=== PATIENT | female | born 1985 | race Caucasian/White ===

== ENCOUNTER → 2016-11-26 | Outpatient (CLI) | payer OTHER ==
[~2016-11-26] MED LIST: ACCL20 PO; ALBUAER2 INH; FERR325T51 PO; FLNIN/ NAE; PRENTAB26 PO; ZYRUNK
== END | disposition home or self-care (01) ==
LOC: C.LAB 18:41
PROVIDERS: ATTEND Family Medicine
DX: J45.901 Unspecified asthma with (acute) exacerbation (principal)

== ENCOUNTER → 2017-05-09 | Outpatient (CLI) | payer BC | END | disposition home or self-care (01) | LOC: C.PAPS 17:54 | PROVIDERS: ATTEND Physician Assistant | DX: Z01.419 Encounter for gynecological examination (general) (routine) without abnormal findings (principal) ==

== ENCOUNTER 2019-04-08 07:39 | Inpatient (IN) ==
[2019-04-08] MEDS ORDERED: OXYTOCIN 30 UNITS/500 ML BAG IV PRN ×3 (07:41→14:36)
[2019-04-08 08:08] LABS: Hemoglobin 10.9 g/dL (12.0-16.0); Mean Corpuscular Volume 81.3 fL (80-100); Mean Platelet Volume 10.2 fL (7.4-10.4); Platelet Count 134 K/uL (130-400); RDW Coefficient of Variation 15.6 % (11.5-14.5); RDW Standard Deviation 45.4 fL (36.4-46.3); Red Blood Count 4.06 M/uL (4.2-5.4); White Blood Count 8.46 K/uL (4.8-10.8)
[2019-04-08] MEDS: LACTATED RINGER'S 1,000 ML IV PRN ×2 (08:11→11:21)
--- NOTE | 2019-04-08 08:18 | History & Physical Report ---
Date of Service April 08, 2019 Assessment & Plan (1) Elective induction of labor planned: fetus category one. Plan induction with pitocin, arom as indicated. Epidural if desired. Anticipate . History of Present Illness Chief Complaint: induction Primary Care Provider: Gayle Unger MD Patient is a 33yowf with iup at 39 6/7 weeks who presents for induction of labor. +fm. no lof/vb. irregular contraction. uncomplicated. labs--A-/ab-/pap nl/ri/rprnr/hepb-/hiv-/gc/ct-/ 16 week gtt nl/ 28 week gtt 146, nl 2 hr/gbs neg Allergies Allergy/AdvReac Type Severity Reaction Status Date / Time cat dander Allergy Severe THROAT Verified 04/08/19 07:58 SWELL, ITCHY, WATERY EYES shellfish derived Allergy Severe THROAT Verified 04/08/19 07:58 SWELL, ITCHY, WATERY EYES No Known Drug Allergies Allergy Unknown Verified 04/08/19 07:58 Dust Allergy Severe THROAT Uncoded 10/20/18 15:10 SWELLS,ITCHY, WATERY EYES Patient History Medical History (Acute) Acute hepatitis A (Resolved) Dysplasia of cervix, low grade (MARIO 1) Ganglion Varicella [place] teeth extracted Surgical History H/O sinus surgery History of tonsillectomy Family History Other Adopted Social History Preferred Language: Ch[place] Feels Safe at Home: Yes Smoking Status: Never smoker OB History g2--02/07, 8#15 oz, g1--09/07, , 7#8oz BOTTOM CAGER History hx of lsil pap and colpo c/w mario 1 Review of Systems All systems reviewed & are unremarkable except as noted in HPI & below Physical Exam Constitutional: WD/WN, vitals as above Gastrointestinal (Abdomen): soft, gravid, nt Psychiatric: A+Ox3, euthymic affect Genitourinary: cx--3/50/-2/soft/mid toco--rare efm--140s with mod varibility, accels to 170s, no decels Results & Data Vital Signs (Past 12 Hours) Vital Signs Temp Pulse Resp BP 04/08/19 07:49 36.6 C 20 04/08/19 07:47 114 H 126/71 Code Status & VTE Plan VTE Prophylaxis Plan VTE Prophylaxis will be ordered: No
[2019-04-08] MEDS ORDERED: ePHEDrine sulfate 50 MG/ML AMP ONE (10:35)
[2019-04-08] MEDS ORDERED: BUPIVACAINE 0.25% 30 ML VIAL ONE (10:35)
[2019-04-08] MEDS ORDERED: fentaNYL citrate 100 MCG/2 ML VIAL ONE (10:36)
[2019-04-08] MEDS ORDERED: fentaNYL 2MCG/ML ROPIV 1.25MG/ML 100 ML BAG EPI ONE (10:37)
[2019-04-08] MEDS ORDERED: fentaNYL 2MCG/ML ROPIV 1.25MG/ML 100 ML BAG EPI PRN (10:50)
[2019-04-08] MEDS ORDERED: ePHEDrine sulfate 50 MG/ML AMP IV PRN (10:50)
[2019-04-08] MEDS ORDERED: NALOXONE HCL 0.4 MG/1 ML VIAL/CARP IV PRN (10:50)
[2019-04-08] MEDS ORDERED: NALOXONE HCL 1 MG in SODIUM CHLORIDE 0.9% 1000ML 1,000 ML IV PRN (10:50)
[2019-04-08] MEDS ORDERED: ONDANSETRON INJ 2 MG/ML 2 ML VIAL IV PRN (10:50)
[2019-04-08] MEDS ORDERED: NALBUPHINE HCL INJ 10 MG/ML AMP IV PRN (10:50)
[2019-04-08] MEDS ORDERED: DiphenhydrAMINE HCL 50 MG/ML VIAL IV PRN (10:50)
--- NOTE | 2019-04-08 11:00 | Obstetrical Progress Note ---
Date of Service April 08, 2019 Assessment & Plan (1) Encounter for supervision of normal in multigravida: (2) Elective induction of labor planned: pitocin infusing, cont per protocol, see how arom augments pattern. fhts categ 1. aware I am assuming care. Subjective saw pt about 1hr ago, was sleeping, pit was infusing. Physical Exam Constitutional: WD/WN, vitals as above Genitourinary: Manual OB Exam: + cervical dilation (2-3), + cervical eff acement 60%, + station -2 and + amniotic fluid (AROM) clear OB Exam Monitor Tracing: + external FHT monitor used (reactive, categ 1), + external uterine monitor used (irreg), + category I and + normal FHT variability Results & Data Vital Signs (Past 12 Hours) Vital Signs Temp Pulse Resp BP 04/08/19 10:00 20 04/08/19 09:59 84 116/67 04/08/19 09:10 85 110/63 04/08/19 07:49 97.9 F 20 04/08/19 07:47 114 H 126/71 PG Care Time/CCT Total # of Minutes Spent Total Time Spent with Patient: Total time spent is greater than 50% in coordination of care (as documented) at patient's floor/unit and/or counseling patient:
--- NOTE | 2019-04-08 11:01 | Anesthesiology Consultation ---
Date of Service April 08, 2019 Assessment & Plan (1) Encounter for pre-operative examination: Chart Review Chart Review: Acceptable Risk for Labor Epidural Consults Requested none ASA ASA2 Proposed Anesthesia Anesthesia Type: Labor Epidural Risk / Benefits Reviewed With: PT / POA / Parent / Guardian, Accepts Plan and Informed Consent Obtained History Height/Weight Height: 5 ft 4 in Weight: 103.374 kg Allergies Allergy/AdvReac Type Severity Reaction Status Date / Time cat dander Allergy Severe THROAT Verified 04/08/19 07:58 SWELL, ITCHY, WATERY EYES shellfish derived Allergy Severe THROAT Verified 04/08/19 07:58 SWELL, ITCHY, WATERY EYES No Known Drug Allergies Allergy Unknown Verified 04/08/19 07:58 Dust Allergy Severe THROAT Uncoded 10/20/18 15:10 SWELLS,ITCHY, WATERY EYES Medications Home Medications Medication Instructions Recorded Confirmed Last Taken albuterol sulfate [Ventolin HFA] 2 puff INHALATION Q4 PRN 04/08/19 04/08/19 04/08/19 06:30 cetirizine [Zyrtec] 10 mg PO DAILY 04/08/19 04/08/19 04/06/19 20:00 fluticasone propionate [Flonase 1 spray INTRANASAL DAILY PRN 04/08/19 04/08/19 Unknown Allergy Relief] vit no.[id number] 1 tab PO HS 04/08/19 04/08/19 04/07/19 20:00 [ Vitamin] Active Medications Generic Name Dose Route Start Last Admin Trade Name Freq PRN Reason Stop Dose Admin Lactated Ringer's 1,000 mls @ 125 mls/hr 04/08/19 07:41 04/08/19 10:41 Lr IV 04/10/19 07:40 999 mls/hr .Q8H PRN Infusion L&D Protocol Protocol Oxytocin 30 units in 500 mls @ 6 mls/hr 04/08/19 07:41 04/08/19 09:41 Pitocin IV 04/10/19 07:40 0.36 units/hr .Q24H PRN 6 mls/hr Labor Induction/Augmentation Titration Protocol 0.36 UNITS/HR Past Medical History Medical History (Acute) Acute hepatitis A (Resolved) Dysplasia of cervix, low grade (SUHAS 1) Ganglion Varicella [place] teeth extracted Exercise / Class Metabolic Activity II 4-5 Yardwork/Stairs/Walk up hill Past Family History Family History Other Adopted Past Surgical History Surgical History H/O sinus surgery History of tonsillectomy Past Anesthesia History No Hx of Anesthesia Complications and No Family Hx of Anesthesia Complications History of PONV No Hx of PONV and No Hx of Motion Sickness Social History Smoking Status: Never smoker Hx Alcohol Use: No Hx Substance Use: No Physical Exam Vital Signs Last Vital Signs Temp 97.9 F 04/08/19 07:49 Pulse 84 04/08/19 09:59 Resp 20 04/08/19 10:00 BP 116/67 04/08/19 09:59 ENMT Mouth: no dentition abnormality Thyromental Distance: > or= 3.5 Finger Breadths Mallampati Class: II Neck normal visual inspection Respiratory normal respiratory effort Auscultation: lungs clear to auscultation bilaterally Cardiovascular Rate/Rhythm: regular rate and regular rhythm Testing Laboratory Results 04/08/19 07:54
--- NOTE | 2019-04-08 14:34 | Delivery Summary ---
Vaginal Delivery Summary Date of Service April 08, 2019 The patient dilated to complete and pushed to deliver a viable female Apgars 9 and 10 via from direct OP position over small vaginal laceration. Mouth and nose bulb suctioned at perineum. Shoulders and body delivered with ease. Infant was vigorous and crying at . Cord clamped at 30 seconds of life and infant to maternal abdomen where the cord was then doubly clamped and cut. Placenta delivered spontaneously and intact, three-vessel cord. Hemostasis achieved with dilute pitocin and uterine massage and drainage of the bladder for approximately 50 cc under sterile conditions. Small vaginal laceration reapproximated with 3-0 vicryl interrupted suture. Cervix and sulci intact. EBL 400 cc. Mother and baby stable recovery.
[2019-04-08] MEDS ORDERED: BENZOCAINE 20% AER SPR 82.5 GM CAN EXT PRN (14:36)
[2019-04-08] MEDS ORDERED: ACETAMINOPHEN 325 MG TAB PO PRN (14:36)
[2019-04-08] MEDS ORDERED: SUPERCREAM 0.870% 15 GM JAR EXT PRN (14:36)
[2019-04-08] MEDS ORDERED: DIPHTHERIA/TETANUS/PERTUSSIS 0.5 ML SYR/VIAL IM ONE (14:36)
[2019-04-08] MEDS ORDERED: OXYCODONE/ACETAMINOPHEN 5mg/325mg TAB PO PRN (14:36)
[2019-04-08] MEDS ORDERED: HYDROCORTISONE ACETATE 25 MG SUPP PR PRN (14:36)
[2019-04-08] MEDS ORDERED: FLUTICASONE PROPIONATE NA SPR 16 GM BTL PRN (14:43)
[2019-04-08] MEDS ORDERED: ALBUTEROL HFA 8 GM INHALER INH PRN (14:43)
[2019-04-08] MEDS ORDERED: OXYTOCIN 20 UNITS in LACTATED RINGER'S 1,000 ML IV SCH (14:45)
--- NOTE | 2019-04-08 15:30 | Anesthesia Procedure Note ---
Date of Service April 08, 2019 Anesthesia Post Epidural Note Vital Signs Vital Signs: Temp Pulse Resp BP Pulse Ox 98.2 F 80 18 110/53 L 98 04/08/19 14:50 04/08/19 15:24 04/08/19 14:50 04/08/19 15:24 04/08/19 14:28 Pain Intensity Perineal: Pain Intensity: 5 Notes Mental Status: alert / awake / arousable and participated in evaluation Nausea / Vomiting: adequately controlled Pain: adequately controlled Airway Patency, RR, SpO2: stable & adequate BP & HR: stable & adequate Hydration State: stable & adequate Neuraxial Anesthesia: was administered and sensory block is resolving Anesthetic Complications: no major complications apparent and Pt Satisfied with anesthetic care Epidural: Removed without complications and With tip intact
[2019-04-08] MEDS: IBUPROFEN 600 MG TAB PO PRN ×2 (16:22→20:30)
[2019-04-08] MEDS: DOCUSATE SODIUM 100 MG CAP PO SCH (20:30)
[2019-04-09] MEDS: IBUPROFEN 600 MG TAB PO PRN ×4 (03:01→20:08)
--- NOTE | 2019-04-09 07:28 | Obstetrical Progress Note ---
Date of Service April 09, 2019 Assessment & Plan (1) Elective induction of labor planned: (2) Normal delivery at term: doing well, routine care. Day #:: 1 Subjective Ambulation: ambulating normally Voiding: no voiding problems Diet Tolerance:: regular diet Lochia:: Small Feeding Type:: breast feeding doing well, will need rhogam Physical Exam Constitutional WD/WN, vitals as above Respiratory normal respiratory effort, lungs clear to auscultation Cardiovascular Rate/Rhythm: regular rate and regular rhythm Gastrointestinal (Abdomen) Percussion/Palpation: abdomen soft; abdomen nontender ff 2 down Musculoskeletal nt calves Neurologic grossly normal Psychiatric A+Ox3, euthymic affect Results & Data Vital Signs (Past 12 Hours) Vital Signs Temp Pulse Resp BP Pulse Ox 04/09/19 03:20 98.2 F 73 18 101/64 97 04/08/19 23:20 98.2 F 88 18 107/75 96 04/08/19 19:47 97.9 F 91 H 18 110/74 98
[2019-04-09] MEDS: DOCUSATE SODIUM 100 MG CAP PO SCH ×2 (07:49→20:08)
[2019-04-09] MEDS: CETIRIZINE HCL 10 MG TABLET PO SCH (09:37)
[2019-04-10] MEDS: IBUPROFEN 600 MG TAB PO PRN ×2 (02:40→08:47)
--- NOTE | 2019-04-10 05:58 | Obstetrical Progress Note ---
Date of Service <Lida Griffin MD - Last Filed: 04/10/19 06:45> April 10, 2019 Assessment & Plan <Lida Griffin MD - Last Filed: 04/10/19 06:45> (1) Status post vaginal delivery: Kat is a 33 yo on PPD 2 after . - GBS -, Rh -, Rubella immune; baby Rh+; Rhogam administered (04/09) -Vitals reviewed and WNL -patient is doing clinically well discharge instructions reviewed - After discharge will have [address] Kowalski. Subjective <Lida Griffin MD - Last Filed: 04/10/19 06:45> Ambulation: ambulating normally Voiding: no voiding problems Passing Gas:: Yes Diet Tolerance:: regular diet Lochia:: Moderate Feeding Type:: breast feeding Current Pain Level(1-10): 1 examined at bedside Constitutional: no fever, no chills and no sweats Eyes: no worsening vision Respiratory: no cough and no dyspnea Cardiovascular: no chest pain, no palpitations, no edema and no calf pain Breast: no breast pain Gastrointestinal: no nausea and no vomiting Genitourinary (female): no dysuria and no urinary frequency Neurologic: no headache(s) Physical Exam <Lida Griffin MD - Last Filed: 04/10/19 06:45> Constitutional WD/WN, vitals as above no acute distress Respiratory normal respiratory effort, lungs clear to auscultation does not use accessory muscles Auscultation: no crackles, no rales, no rhonchi, no wheezes and no pleural rub Cardiovascular Rate/Rhythm: regular rate and regular rhythm Heart Sounds: normal S1 and normal S2; no gallop, no murmur and no cardiac rub Extremities: no calf tenderness and no pedal edema Gastrointestinal (Abdomen) Inspection/Auscultation: normal bowel sounds; abdomen not distended Percussion/Palpation: abdomen soft Genitourinary Uterus: fundus firm, palpable 2 cm below the uterus Results & Data <Lida Griffin MD - Last Filed: 04/10/19 06:45> Vital Signs (Past 12 Hours) Vital Signs Temp Pulse Resp BP Pulse Ox 04/09/19 23:30 36.6 C 77 18 98/67 L 04/09/19 20:10 36.4 C L 101 H 18 110/73 98 <Nhan J. Hovick Jr, MD, FACOG - Last Filed: 04/10/19 07:49> Co-Signing Physician Notes Resident Physician Supervision Note: I was present with Dr. Griffin during the history and exam. I discussed the case with the resident and agree with the findings and plan as documented in the note. Any exceptions or clarifications are listed here: D/C instructions reviewed, f/u in 6 weeks Documented By: Nhan Meneses Jr, MD, FACOG
[2019-04-10 07:00] LABS: Hemoglobin 9.3 g/dL (12.0-16.0)
[2019-04-10] MEDS: DOCUSATE SODIUM 100 MG CAP PO SCH (08:47)
[2019-04-10] MEDS: CETIRIZINE HCL 10 MG TABLET PO SCH (08:47)
[2019-04-10] MEDS ORDERED: FERROUS SULFATE 325 MG TAB PO SCH (09:00)
== END 2019-04-10 11:20 | disposition home or self-care (01) | DRG 807 ==
LOC: 4S1 07:39 → 4S2 17:40

== ENCOUNTER 2022-05-13 05:25 | Inpatient (IN) ==
--- NOTE | 2022-04-30 09:29 | Anesthesiology Consultation ---
Date of Service April 30, 2022 Assessment & Plan (1) Encounter for pre-operative examination: COVID screening: Per assessment on 04/30: No known COVID-19 positive contacts or current COVID-19 related symptoms. Travel screen negative. Patient vaccinated. Patient was Covid positive 03/26/22 ([facility]). Symptoms at time: fever, congestion, loss of taste/smell> resolved. Pt can proceed as scheduled without additional preop Covid testing or additional Covid contact precautions per 90 days protocol. Chart Review Chart Review: order entry administrator initiated History Surgery Operation Date: 05/13/22 10:30 Proposed Procedures p Section in LD (Delivery of Baby Through Abdominal Incision) - Jacob Santiago MD s Bilateral Tubal Ligation Labor and Delivery - Jacob Santiago MD Height/Weight Height: 5 ft 4 in Weight: 117.934 kg Allergies Allergy/AdvReac Type Severity Reaction Status Date / Time cat dander Allergy Severe THROAT Verified 04/30/22 08:40 SWELL, ITCHY, WATERY EYES shellfish derived Allergy Severe THROAT Verified 04/30/22 08:40 SWELL, ITCHY, WATERY EYES No Known Drug Allergies Allergy Unknown Verified 04/30/22 08:40 Dust Allergy Severe THROAT Uncoded 04/30/22 08:40 SWELLS,ITCHY, WATERY EYES Medications Home Medications Medication Instructions Recorded Confirmed Last Taken prenat.vits,denise,hon-[id number] 1 tab PO QPM 06/19/21 04/30/22 04/21/22 fluticasone furoate 27.5 1 spray intranasal QAM 09/11/21 04/30/22 04/21/22 mcg/actuation nasal spray,suspension (Flonase Sensimist) breast pump #1 ea 03/18/22 04/25/22 Unknown albuterol sulfate 90 mcg/actuation 2 puff inhalation Q4 PRN Shortness 03/27/22 04/30/22 04/20/22 aerosol inhaler (Ventolin HFA) Of Breath Or Wheezing #8.5 grams aspirin 81 mg tablet,delayed 81 mg PO QPM 04/30/22 04/30/22 Unknown release cetirizine 10 mg capsule (Zyrtec) 10 mg PO QAM 04/30/22 04/30/22 Unknown docusate sodium 100 mg capsule 100 mg PO QPM 04/30/22 04/30/22 Unknown (Colace) sertraline 25 mg tablet (Zoloft) 25 mg PO QAM 04/30/22 04/30/22 Unknown Past Medical History Medical History Acid reflux Anxiety Asthma Depression Dysplasia of cervix, low grade (SUHAS 1) Hemorrhoids History of COVID-19 Dx 03/26/22 ([facility]), Symptoms at time: fever, congestion, loss of taste/smell> resolved History of hepatitis A Need for rhogam due to Rh negative mother Obesity complicating peripregnancy, antepartum Tinnitus of right ear Past Family History Family History Sister Allergies Asthma Grandfather (Paternal) Heart disease Aunt Asthma Other Adopted Hypertension Denies family history of Hearing loss No family history of adverse response to anesthesia Cancer Stroke Past Surgical History Surgical History Ganglion removed in 2009 H/O sinus surgery [place] teeth extracted Social History Smoking Status: Never smoker Do You Dip or Chew Tobacco: No Hx Alcohol Use: Yes Alcohol type: beer and wine alcohol intake frequency: a few times a week Alcohol Intake Frequency Comment: NON Hx Substance Use: No Lab Results Anesthesia Preop Results Results Anesthesia Widget: Hgb 10.1 g/dl (12.0-16.0) L 03/06/22 Hct 32.5 % (34.1-44.9) L 03/06/22 Urine Color Yellow 03/04/22 Urine Appearance Cloudy (Clear) A 03/04/22 Urine pH 6.5 (4.5-7.5) 03/04/22 Urine Specific [place] 1.024 (1.000-1.030) 03/04/22 Urine Protein Trace (Negative) H 03/04/22 Urine Glucose (UA) Negative (Negative) 03/04/22 Urine Ketones Trace (Negative) H 03/04/22 Urine Blood Negative (Negative) 03/04/22 Urine Nitrite Negative (Negative) 03/04/22 Urine Bilirubin Negative (Negative) 03/04/22 Urine Urobilinogen Negative (Negative) 03/04/22 Urine Leukocyte Esterase Negative (Negative) 03/04/22 Urine WBC (Auto) 1-5 /hpf (0-5) 03/04/22 Urine RBC (Auto) 0-4 /hpf (0-4) 03/04/22 Urine Hyaline Casts (Auto) 1-5 /lpf (0-5) 03/04/22 Urine Epithelial Cells (Auto) >30 /lpf (0-5) H 03/04/22 Urine Bacteria (Auto) Negative (Negative) 03/04/22
[2022-05-13] MEDS ORDERED: LACTATED RINGER'S 1,000 ML IV SCH ×2 (05:45→10:00)
[2022-05-13] MEDS ORDERED: CITRIC ACID/SODIUM CITRATE 15 ML UDC PO SCH (06:00)
[2022-05-13 06:37] LABS: Hematocrit (blood only) 30.1 % (34.1-44.9); Hemoglobin 9.5 g/dl (12.0-16.0); Mean Corpuscular Hemoglobin 25.3 pg (25.0-34.0); Mean Corpuscular Hgb Conc 31.6 g/dL (32.0-36.0); Mean Corpuscular Volume 80.1 fL (80.0-100.0); Mean Platelet Volume 11.2 fL (9.4-12.3); Platelet Count 122 K/uL (130-400); RDW Coefficient of Variation 17.9 % (11.5-14.5); RDW Standard Deviation 51.6 fL (36.4-46.3); Red Blood Count 3.76 M/uL (3.93-5.22); White Blood Count 7.61 K/ul (4.8-10.8)
[2022-05-13 06:50] LABS: Basophils # (auto) 0.01 K/uL (0-0.2); Basophils % (auto) 0.1 %; Eosinophils # (auto) 0.08 K/uL (0-0.50); Eosinophils % (auto) 1.1 %; Immature Granulocytes # (auto) 0.07 K/uL (0.00-0.02); Immature Granulocytes % (auto) 0.9 %; Lymphocytes # (auto) 2.12 K/uL (1.2-3.4); Lymphocytes % (auto) 27.9 %; Monocytes # (auto) 0.56 K/uL (0.24-0.82); Monocytes % (auto) 7.4 %; Neutrophils # (auto) 4.77 K/uL (1.4-6.5); Neutrophils % (auto) 62.6 %
[2022-05-13] MEDS ORDERED: PHENYLEPHRINE 100MCG/ML 5ML SYR ONE (06:54)
[2022-05-13] MEDS ORDERED: ONDANSETRON INJ 2 MG/ML 2 ML VIAL ONE (06:54)
[2022-05-13] MEDS ORDERED: OXYTOCIN 10 UNITS/ML VIAL ONE (06:54)
[2022-05-13] MEDS ORDERED: fentaNYL citrate 100 MCG/2 ML VIAL ONE (06:55)
[2022-05-13] MEDS ORDERED: MoRPHine SULFATE PF 1 MG/ML 10 ML AMP/VIAL ONE (06:55)
--- NOTE | 2022-05-13 07:19 | History & Physical Report ---
Date of Service May 13, 2022 Assessment & Plan (1) Dichorionic diamniotic twin gestation: (2) Supervision of elderly multigravida: (3) Breech presentation: Plan 36yo at 38w4d GA. pLTCS with BTL for twin with fetus A in breech presentation. 1. Fetus: Reactive x 2 2. Delivery: - Consent signed 3. Vitals: WNL Admission and Anticipated Discharge Date Admission Date: May 13, 2022 History of Present Illness Primary Care Provider: Gayle Unger MD 36yo at 38w4D GA. Presents for pLTCS with BTL for twin wit fetus A in breach presentation. Vi Twins *Baby ASA daily start 12-28wks until delivery *Anatomy scan @20wks *Serial growth US/S starting @24wks *Wkly NST's @32wks, twice wkly @36wks(nml growth) *Twice wkly NST's @32wks, ICSI or abnml growth *MD visits Q2wks @24wks & Qwk @32wks *DI/DI Deliver @38wks Obesity (BMI between 35-39 @ beginning of ) *Growth US @ 32 wks *Weekly NSTs @ 36wks Asthma - Mild OB Labs: Blood Type A Negative 10/15/21 Antibody Screen NEGATIVE 03/04/22 Hemoglobin 10.1 g/dl (12.0-16.0) L 03/06/22 Hematocrit 32.5 % (34.1-44.9) L 03/06/22 Mean Corpuscular Volume 88.2 fL (80-100) 10/15/21 Platelet Count 231 K/uL (130-400) 10/15/21 Rubella IgG Antibody Immune (Immune) 10/15/21 Rapid Plasma Reagin Nonreactive (Nonreactive) 10/15/21 Hepatitis B Surface Antigen Neg (Neg) 10/15/21 Hepatitis C Antibody Neg (Neg) 10/15/21 HIV (1&2) Ab and P24 Ag, 4th Gener Neg (Neg) 10/15/21 Glucose 1 Hour 50 gm Load 147 mg/dl (70-130) H 12/10/21 OB Optional Labs: Chlamydia trachomatis RNA NOT DETECTED (NOT DETECTED) 10/15/21 Neisseria gonorrhoeae RNA NOT DETECTED (NOT DETECTED) 10/15/21 Labs Reviewed: passed 2 hr gtt 16 weeks declined genetics/cf/sma--akh declined afp--akh Allergies Allergy/AdvReac Type Severity Reaction Status Date / Time cat dander Allergy Severe THROAT Verified 05/10/22 09:32 SWELL, ITCHY, WATERY EYES shellfish derived Allergy Severe THROAT Verified 05/10/22 09:32 SWELL, ITCHY, WATERY EYES No Known Drug Allergies Allergy Unknown Verified 05/10/22 09:32 Dust Allergy Severe THROAT Uncoded 05/10/22 09:32 SWELLS,ITCHY, WATERY EYES Home Medications Medication Instructions Recorded Confirmed Type prenat.vits,denise,[id number] 1 tab PO QPM 06/19/21 05/13/22 History fluticasone furoate 27.5 1 spray intranasal QAM 09/11/21 05/13/22 History mcg/actuation nasal spray,suspension (Flonase Sensimist) breast pump #1 ea 03/18/22 05/10/22 Rx albuterol sulfate 90 mcg/actuation 2 puff inhalation Q4 PRN Shortness 03/27/22 05/13/22 Rx aerosol inhaler (Ventolin HFA) Of Breath Or Wheezing #8.5 grams aspirin 81 mg tablet,delayed 81 mg PO QPM 04/30/22 05/13/22 History release cetirizine 10 mg capsule (Zyrtec) 10 mg PO QAM 04/30/22 05/13/22 History docusate sodium 100 mg capsule 100 mg PO QPM 04/30/22 05/13/22 History (Colace) sertraline 25 mg tablet (Zoloft) 25 mg PO QAM 04/30/22 05/13/22 History Patient History Medical History Acid reflux Anxiety Asthma Depression Dysplasia of cervix, low grade (SUHAS 1) Hemorrhoids History of COVID-19 Dx 03/26/22 ([facility]), Symptoms at time: fever, congestion, loss of taste/smell> resolved History of hepatitis A Need for rhogam due to Rh negative mother Obesity complicating peripregnancy, antepartum Tinnitus of right ear Surgical History Ganglion removed in 2009 H/O sinus surgery [place] teeth extracted Family History Sister Allergies Asthma Grandfather (Paternal) Heart disease Aunt Asthma Other Adopted Hypertension Denies family history of Hearing loss No family history of adverse response to anesthesia Cancer Stroke Social History Smoking Status: Never smoker Second Hand Exposure: No; Do You Dip or Chew Tobacco: No; Hx Alcohol Use: No Hx Substance Use: No Preferred Language: [place]i Communication Ability: Effective Bandsaw Operator Required: No Beliefs That Will Affect Care: None marital status: marital status details: Juvenal [phone] Current Living Situation: Spouse and Parent Current Living Situation Comment: lives with spouse and 4 children, mother in law, step child, 3 dogs. current occupational status: employed current occupation: [employer] How many Children do You have: 3 Other Information That Helps Us Care for You: No Feels Safe at Home: Yes Safety Concerns: Afraid for Self Assistive Devices: None Physical Exam Respiratory: normal respiratory effort; no respiratory distress, no labored breathing and no retractions Cardiovascular: Rate/Rhythm: regular rate and regular rhythm Gastrointestinal (Abdomen): Inspection/Auscultation: abdomen not distended Percussion/Palpation: abdomen soft; abdomen nontender, no guarding and abdomen not rigid Genitourinary: OB Exam Abdomen: + breech (Fetus A) Results & Data ([facility]) Vital Signs (Past 12 Hours) Vital Signs Temp Pulse Resp BP 05/13/22 05:39 101 H 136/68 05/13/22 05:43 36.7 C 18 Coding Level of Care Code None Diagnoses Dichorionic diamniotic twin gestation O30.049 Supervision of elderly multigravida O09.529 Breech presentation O32.1XX0
[2022-05-13] MEDS ORDERED: ONDANSETRON INJ 2 MG/ML 2 ML VIAL IV PRN ×2 (08:33→09:47)
[2022-05-13] MEDS ORDERED: MoRPHine SULFATE PF 1 MG/ML 10 ML AMP/VIAL INT SPINAL ONE (08:33)
[2022-05-13] MEDS ORDERED: MoRPHine SULFATE 2 MG/ML CARP IV PRN (08:33)
[2022-05-13] MEDS ORDERED: ePHEDrine sulfate 50 MG/ML AMP IV PRN (08:33)
[2022-05-13] MEDS ORDERED: NALOXONE HCL 1 MG in SODIUM CHLORIDE 0.9% 1000ML 1,000 ML IV PRN (08:33)
[2022-05-13] MEDS ORDERED: diphenhydrAMINE 50 MG/ML VIAL IV PRN (08:33)
[2022-05-13] MEDS ORDERED: NALOXONE HCL 0.4 MG/1 ML VIAL/CARP IV PRN (08:33)
[2022-05-13] MEDS ORDERED: NALOXONE HCL 0.08 MG in SYRINGE 1.8 ML IV PRN (08:33)
[2022-05-13] MEDS ORDERED: NALBUPHINE HCL INJ 10 MG/ML AMP IV PRN (08:33)
[2022-05-13] MEDS ORDERED: LACTATED RINGER'S 500 ML IV PRN (08:33)
[2022-05-13] MEDS ORDERED: DC INTRASPINAL MORPHINE SCH (08:45)
[2022-05-13] MEDS ORDERED: NO NARCOTICS OR SEDATIVES SCH (08:45)
[2022-05-13] MEDS ORDERED: SODIUM CHLORIDE 0.9% 1000ML 1,000 ML IV SCH (08:45)
--- NOTE | 2022-05-13 09:46 | Post Operative Brief Note ---
PG Immediate Post Op with CF Date of Surgery May 13, 2022 Pre & Post Diagnosis Operation Date: 05/13/22 07:30 Pre-Op Diagnosis: Twin , Breech Presentation; Request for Sterilization Post-Op Diagnosis: Twin , Breech Presentation; Request for Sterilization I identified the patient and participated in the time-out.: Yes Procedure Operation Date: 05/13/22 07:30 Actual Procedures p Section in LD; Live Female A at 0843; Live Female Infant B at 0844 - Jacob Santiago MD s Bilateral Tubal Ligation(Bilateral) - Jacob Santiago MD Surgeon Jacob Santiago MD [employer] None Estimated Blood Loss 700 Findings Consistent with Post-Op Diagnosis Specimens Specimen Description: Placenta (Hold) Cord Blood Left Fallopian Right Fallopian Tube Arterial and Venous Cord Gases
[2022-05-13] MEDS ORDERED: MAGNESIUM HYDROXIDE SUSP 30 ML UDC PO PRN (09:47)
[2022-05-13] MEDS ORDERED: HYDROCORTISONE ACETATE 25 MG SUPP PR PRN (09:47)
[2022-05-13] MEDS ORDERED: DIPHTHERIA/TETANUS/PERTUSSIS 0.5 ML SYR/VIAL IM ONE (09:47)
[2022-05-13] MEDS ORDERED: BENZOCAINE 20% AER SPR 82.5 GM CAN EXT PRN (09:47)
[2022-05-13] MEDS ORDERED: SENNA 8.6 MG TAB PO PRN (09:47)
[2022-05-13 09:48] LABS: Base Excess Cord Arterial Bld -4.5 mEq/L (-9-1.8); CO2 Cord Arterial Blood 61 mmHg (39.1-73.5); HCO3 Cord Arterial Blood 24 mmol/L (19.7-28.5); Oxygen Sat Cord Arterial Blood < 60.0 % (<60); PO2 Cord Arterial Blood 18 mmHg (4.1-31.7); pH Cord Arterial Blood 7.21 (7.1-7.38)
[2022-05-13 09:51] LABS: Base Excess Cord Venous Blood -2.3 mEq/L (-7.7-1.9); Cord Venous Blood HCO3 23 mmol/L (18.4-26.8); Cord Venous Blood PCO2 38 mmHg (30.4-57.2); Cord Venous Blood PO2 41 mmHg (14.1-43.3); Cord Venous Blood pH 7.38 (7.20-7.44); O2 Saturation Cord Venous Bld 82.3 % (<68)
[2022-05-13 09:53] LABS: Base Excess Cord Arterial Bld -2.4 mEq/L (-9-1.8); CO2 Cord Arterial Blood 50 mmHg (39.1-73.5); HCO3 Cord Arterial Blood 25 mmol/L (19.7-28.5); Oxygen Sat Cord Arterial Blood < 60.0 % (<60); PO2 Cord Arterial Blood 12 mmHg (4.1-31.7)
[2022-05-13 09:55] LABS: Base Excess Cord Venous Blood -1.3 mEq/L (-7.7-1.9); Cord Venous Blood HCO3 24 mmol/L (18.4-26.8); Cord Venous Blood PCO2 43 mmHg (30.4-57.2); Cord Venous Blood PO2 24 mmHg (14.1-43.3); Cord Venous Blood pH 7.36 (7.20-7.44); O2 Saturation Cord Venous Bld < 60.0 % (<68)
--- NOTE | 2022-05-13 09:58 | Anesthesiology Progress Note ---
Date of Service May 13, 2022 Anesthesia Post Procedure Vital Signs Vital Signs: Temp Pulse Resp BP Pulse Ox 05/13/22 09:53 91 H 89 L 05/13/22 09:51 82 100 05/13/22 09:46 79 100 05/13/22 09:47 75 127/58 L 05/13/22 08:02 36.6 C 05/13/22 08:04 79 134/64 05/13/22 05:39 101 H 136/68 05/13/22 05:43 36.7 C 18 Transfer of Care Handoff Completed per policy Notes Mental Status: alert / awake / arousable and participated in evaluation Patient Amnestic to Procedure: No Nausea / Vomiting: adequately controlled Pain: adequately controlled Airway Patency, RR, SpO2: stable & adequate BP & HR: stable & adequate Hydration State: stable & adequate Neuraxial Anesthesia: was administered and sensory block is resolving Anesthetic Complications: no major complications apparent and Pt Satisfied with anesthetic care
[2022-05-13] MEDS: OXYTOCIN 20 UNITS in LACTATED RINGER'S 1,000 ML IV SCH ×2 (10:31→20:07)
[2022-05-13] MEDS: KETOROLAC 30 MG/ML VIAL IV PRN ×2 (10:46→18:01)
--- NOTE | 2022-05-13 10:48 | Operative Report (OR) ---
DATE OF SERVICE: 05/13/2022. PROCEDURE: Primary low transverse section with bilateral salpingectomy. SURGEON: Jacob Santiago MD. PAN CLEANER: Tricia Burton MD. PREOPERATIVE DIAGNOSES: 1. Twin intrauterine at 38 weeks 4 days gestational age. 2. Breech presentation of fetus A. 3. Advanced maternal age. 4. Desired permanent sterilization. POSTOPERATIVE DIAGNOSES: 1. Twin intrauterine at 38 weeks 4 days gestational age. 2. Breech presentation of fetus A. 3. Advanced maternal age. 4. Desired permanent sterilization. 5. Status post procedure. ESTIMATED BLOOD LOSS: 700 mL DRAINS: None. FLUIDS: Continuous lactated Ringer. URINE OUTPUT: Per Easley catheter. DESCRIPTION OF PROCEDURE: The patient was taken to the operating room after consents were assured. Upon presentation, she was properly identified. Spinal anesthesia was obtained without difficulty. The patient was then prepped and draped in normal sterile fashion. Preprocedural timeout was performed. A Pfannenstiel incision was then made with a knife. This was carried down to underlying fascia with the Bovie. The fascia was nicked at the midline with the knife and extended laterally with pickups and Wilburn scissors. The superior aspect of the fascia was grasped with Kochers x2, elevated off the underlying rectus muscles using blunt dissection. Inferior aspect of the fascia was grasped with Kochers x2, elevated off the underlying rectus muscles using blunt dissection. The midline was then entered bluntly and placed on stretch to provide adequate room for delivery. A bladder flap was created. A low transverse uterine incision was then made with a knife. The uterine cavity was then entered bluntly with copious clear fluid noted. The fetus A was noted to be in a complete breech presentation and the feet were brought out through the hysterotomy followed by the body and shoulders. Head also came with minimal effort. The was suctioned brought on the surgical field, was noted to have a whitish appearing liquid coming from its mouth. This occurred on several occasions. The cord was clamped and cut. taken to the awaiting nursery staff for further evaluation. Cord segment and cord blood were obtained. Attention was then turned to delivery of fetus B, which was noted to be in cephalic position. Membranes were ruptured with Allis clamp. Head of the was brought of the hysterotomy without difficulty, body and shoulders quickly followed. was noted to be vigorous upon delivery. The was suctioned and stimulated on the surgical field. The cord was then double clamped and cut. taken to the waiting nursery staff for evaluation. Cord segment and cord blood were obtained. Attention was then turned to delivery of the placenta, which was delivered intact, 3-vessel cord, gentle cord traction and uterine massage. The uterus was then exteriorized. Several passes were made inside to remove any remaining membranes with a dry lap. The uterus was wrapped in a wet lap and the hysterotomy was reapproximated with 0 Vicryl continuous running stitch, the second imbricating layer was performed, after which the uterus was noted to be hemostatic. The tubal ligation was then initiated. The patient was asked again if she would like to still proceed with tubal and the patient gave the affirmative to proceed with tubal ligation. The right fallopian tube was grasped with a clamp and a LigaSure was then used to serially cauterize and dissect the mesosalpinx back to the level of the uterine cornua, at which the uterus was transected at which the tube was transected and sent to pathology for evaluation. The process was repeated on the left fallopian tube and both tubes were sent to pathology for evaluation. Posterior cul-de-sac was then cleaned of clots and debris. The hysterotomy was reinspected and noted to have continued hemostasis. The uterus was replaced back into the maternal abdomen and the right and left pericolic gutters were cleaned of clots and debris. The hysterotomy was then reinspected and noted to be hemostatic. Both tubal pedicles were evaluated and noted to be hemostatic. The muscle fascia and subcutaneous layers were inspected and noted to be hemostatic. The fascia was then reapproximated with 0 Vicryl continuous running stitch. The subcutaneous layers were inspected to be hemostatic. The subcutaneous layers were reapproximated with 2-0 plain in continuous running stitch in 2 layers. The skin was reapproximated with 3-0 Vicryl on a Emilio needle. Needle, sponge, and instrument counts were correct at the completion of the case. Dermabond was placed on top of the incision after closure. Both mother and were in stable condition in the immediate post-delivery period. Baby A was, however, taken to nursery for close surveillance. Job ID: [id number] [facility]
[2022-05-13] MEDS: SIMETHICONE 80 MG CHEW PO SCH ×3 (14:31→22:00)
[2022-05-13] MEDS ORDERED: LACTATED RINGER'S 1,000 ML IV ONE (18:29)
[2022-05-13] MEDS: DOCUSATE SODIUM 100 MG CAP PO SCH (22:00)
[2022-05-14] MEDS: KETOROLAC 30 MG/ML VIAL IV PRN (00:08)
[2022-05-14] MEDS ORDERED: PROMETHAZINE HCL 25 MG in SODIUM CHLORIDE 0.9% 50 ML IV PRN (02:33)
[2022-05-14] MEDS ORDERED: KETOROLAC 30 MG/ML VIAL IV PRN (02:33)
[2022-05-14] MEDS ORDERED: diphenhydrAMINE Capsule 25 MG CAP PO PRN (02:33)
[2022-05-14] MEDS ORDERED: diphenhydrAMINE 50 MG/ML VIAL IV PRN (02:33)
[2022-05-14] MEDS: IBUPROFEN 600 MG TAB PO PRN ×4 (04:54→17:10)
[2022-05-14] MEDS: oxyCODONE/ACETAMINOPHEN 5mg/325mg TAB PO PRN ×5 (04:55→18:58)
--- NOTE | 2022-05-14 05:20 | Obstetrical Progress Note ---
Date of Service May 14, 2022 Assessment & Plan (1) Dichorionic diamniotic twin gestation: (2) Breech presentation: (3) delivery delivered: Plan - Overall, feeling well and eating well today - Twins feeding going well, breast feeding both twins and supplementing with formula - Easley removed Am 05/14, passing gas, no bowel movement or independent void - Light ambulation, no calf pain or TTP - Pain controlled w/ Ibuprofen and Percocet - Routine PP care progressing well Admission and Anticipated Discharge Date Admission Date: May 13, 2022 Supervising Physician Co-Signing Physician Notes Patient seen and evaluated and agree with the above assessment plan. Routine care Subjective Today [Date]: Patient is a 36 y/o female who is POD #1 following delivery of twin girls ([place]) at 38w4d. She reports feeling well overall this morning. Her pain is well controlled at 2/10, lochia is diminishing (light-mod), and she was able to eat dinner without difficulty. - Ambulation - to bathroom - Voiding/Easley - no independent void, Easley removed AM 9/20 - Gas/Stool- no stool, passing gas - Diet - regular, no difficulty - Lochia - diminishing, mild-moderate amount - Infant Feeding Type - breast feeding twins, bottle supplementation - Pain Level - 2/10 controlled with ibuprofen and Percocet Review of Systems - Denies fever, chills, sweats - Denies shortness of breath, difficulty breathing, chest pain, palpitations, chest pressure. - Denies breast pain. - Denies dysuria. - Denies headache or changes in vision. - Endorses mild itching sensation in lateral legs (feels like legs are 'waking up' from anesthesia) Physical Exam Physical Exam: General: Alert, oriented. No acute distress. Cardiac: RRR, normal S1/S2, no murmurs/rubs/gallops. Respiratory: Non-labored, CTAB, no wheezes/rales/rhonchi. Symmetric chest rise. Abdomen: Soft, nontender, nondistended. Bowel sounds present. Incision clean, mild erythema, non-purulent. Uterus: Uterine fundus firm, palpable 2 cm below umbilicus. Nontender uterus. Lower Extremities: No lower extremity edema or swelling. No deep calf pain. Pao's negative bilaterally. Results & Data ([facility]) Vital Signs (Past 12 Hours) Vital Signs Temp Pulse Resp BP Pulse Ox O2 Del Method 05/14/22 04:30 36.7 C 74 18 105/72 97 Room Air 05/14/22 00:10 18 97 05/14/22 00:10 36.7 C 84 18 100/60 97 Room Air 05/13/22 22:05 18 96 05/13/22 21:15 18 95 05/13/22 19:15 18 97 05/13/22 20:15 18 95 05/13/22 20:15 36.7 C 78 18 109/72 95 Room Air 05/13/22 18:30 16 97 05/13/22 17:30 16 97 Resident Activity Tracking Resident Involvement: Resident Care Provided Care Provided: OB Delivery
[2022-05-14 07:05] LABS: Basophils # (auto) 0.01 K/uL (0-0.2); Basophils % (auto) 0.1 %; Eosinophils # (auto) 0.09 K/uL (0-0.50); Eosinophils % (auto) 1.2 %; Hematocrit (blood only) 26.8 % (34.1-44.9); Hemoglobin 8.2 g/dl (12.0-16.0); Immature Granulocytes # (auto) 0.04 K/uL (0.00-0.02); Immature Granulocytes % (auto) 0.5 %; Lymphocytes # (auto) 1.48 K/uL (1.2-3.4); Lymphocytes % (auto) 19.2 %; Mean Corpuscular Hemoglobin 24.9 pg (25.0-34.0); Mean Corpuscular Hgb Conc 30.6 g/dL (32.0-36.0); Mean Corpuscular Volume 81.5 fL (80.0-100.0); Mean Platelet Volume 12.1 fL (9.4-12.3); Monocytes # (auto) 0.62 K/uL (0.24-0.82); Neutrophils # (auto) 5.48 K/uL (1.4-6.5); Platelet Count 96 K/uL (130-400); Platelet Estimate Decreased (Normal); Polychromasia 1+; RDW Coefficient of Variation 18.2 % (11.5-14.5); RDW Standard Deviation 53.7 fL (36.4-46.3); Red Blood Count 3.29 M/uL (3.93-5.22); White Blood Count 7.72 K/ul (4.8-10.8)
[2022-05-14] MEDS: PRENATAL VITAMIN 1 TAB PO SCH (07:49)
[2022-05-14] MEDS: SIMETHICONE 80 MG CHEW PO SCH ×4 (07:49→20:26)
[2022-05-14] MEDS: DOCUSATE SODIUM 100 MG CAP PO SCH ×2 (07:49→20:26)
[2022-05-14] MEDS: FERROUS SULFATE 325 MG TAB PO SCH (07:49)
[2022-05-14] MEDS: SERTRALINE HCL 50 MG TABLET PO SCH (07:50)
[2022-05-14] MEDS ORDERED: bisacodyL 5 MG TABEC PO SCH (20:00)
[2022-05-15] MEDS: IBUPROFEN 600 MG TAB PO PRN ×5 (01:25→21:02)
[2022-05-15] MEDS: oxyCODONE/ACETAMINOPHEN 5mg/325mg TAB PO PRN ×5 (01:25→21:01)
--- NOTE | 2022-05-15 05:28 | Obstetrical Progress Note ---
Date of Service May 15, 2022 Assessment & Plan (1) Dichorionic diamniotic twin gestation: (2) Breech presentation: (3) delivery delivered: Plan - Overall, feeling well and eating well today - Twins feeding going well, breast feeding both twins and supplementing with formula - Attempted tandem feeding yesterday which increased uterine cramping - Urinating independently without dysuria, passing gas, had bowel movement - Successfully ambulating around room with no concerns - Pain controlled w/ Ibuprofen and Percocet - Routine PP care progressing well - Anticipate discharge tomorrow with babies Admission and Anticipated Discharge Date Admission Date: May 13, 2022 Supervising Physician Co-Signing Physician Notes Resident Physician Supervision Note: I interviewed and examined the patient. Discussed with Dr. Kline and agree with findings and plan as documented in the note. Any exceptions or clarifications are listed here: Doing well PPD 2. Continued routine care. Anticipate d/c tomorrow. Documented By: Flor Vyas MD, FACOG Subjective Today 05/15: Patient is a 36 y/o female who is POD #2 following delivery of twin girls ([place]) at 38w4d - Ambulation - around room without difficulty - Voiding/Easley - independently voiding, w/o difficulty or dysuria - Gas/Stool- successful bowel movement, no concerns, passing gas - Diet - regular, no difficulty - Lochia - diminishing, light amount, some fluid in pad - Feeding Type - breast feeding twins, bottle supplementation, tandem feeding - Pain Level - 5/10 controlled with ibuprofen and Percocet (worsened with ambulation/feeding) Review of Systems - Denies fever, chills, sweats - Denies shortness of breath, difficulty breathing, chest pain, palpitations, chest pressure. - Denies breast pain. - Denies dysuria. - Denies headache or changes in vision. - Endorses mild itching sensation in lateral legs (feels like legs are 'waking up' from anesthesia) Physical Exam Physical Exam: General: Alert, oriented. No acute distress. Cardiac: RRR, normal S1/S2, no murmurs/rubs/gallops. Respiratory: Non-labored, CTAB, no wheezes/rales/rhonchi. Symmetric chest rise. Abdomen: Soft, nontender, nondistended. Bowel sounds present. Incision clean, m ild erythema, non-purulent. Uterus: Uterine fundus firm, palpable 3 cm below umbilicus. Nontender uterus. Lower Extremities: No lower extremity edema or swelling. No deep calf pain. Pao's negative bilaterally. Results & Data ([facility]) Vital Signs (Past 12 Hours) Vital Signs Temp Pulse Pulse Resp BP BP Pulse Ox 05/15/22 01:15 36.7 C 82 18 116/80 96 05/14/22 21:53 36.5 C 78 16 104/71 96 O2 Del Method 05/15/22 01:15 Room Air 05/14/22 21:53 Resident Activity Tracking Resident Involvement: Resident Care Provided Care Provided: OB Delivery
[2022-05-15 06:41] LABS: Hematocrit (blood only) 26.5 % (34.1-44.9); Hemoglobin 8.4 g/dl (12.0-16.0)
[2022-05-15] MEDS: SERTRALINE HCL 50 MG TABLET PO SCH (07:28)
[2022-05-15] MEDS: FERROUS SULFATE 325 MG TAB PO SCH (07:30)
[2022-05-15] MEDS: SIMETHICONE 80 MG CHEW PO SCH ×4 (07:30→21:01)
[2022-05-15] MEDS: PRENATAL VITAMIN 1 TAB PO SCH (07:30)
[2022-05-15] MEDS ORDERED: bisacodyL 10 MG SUPP PR PRN (09:48)
[2022-05-15] MEDS: DOCUSATE SODIUM 100 MG CAP PO SCH ×2 (13:11→21:29)
--- NOTE | 2022-05-16 05:23 | Obstetrical Progress Note ---
Date of Service May 16, 2022 Assessment & Plan (1) Dichorionic diamniotic twin gestation: (2) Breech presentation: (3) delivery delivered: Plan - Overall, feeling well and eating well today, ready to go home with daughters - Twins feeding going well, breast feeding both twins and supplementing with formula - Urinating independently without dysuria, passing gas, had bowel movements - Successfully ambulating around room/hallway with no concerns - Pain controlled w/ Ibuprofen and Percocet, diminishing - Routine PP care progressing well - Plan discharge today with babies Admission and Anticipated Discharge Date Admission Date: May 13, 2022 Supervising Physician Co-Signing Physician Notes Resident Physician Supervision Note: I was present with Dr. Kline during the history and exam. I discussed the case with the resident and agree with the findings and plan as documented in the note. Any exceptions or clarifications are listed here: POD#3 doing well. DC home. Reviewed instructions. Rx Percocet #20 tabs to [facility]. Documented By: Sherry Chakraborty, DO Subjective Today 05/16: Patient is a 36 y/o female who is POD #2 following delivery of twins at 38w4d. Delivery of baby girls - [place] - Ambulation - around room without difficulty - Voiding/Easley - independently voiding, w/o difficulty or dysuria - Gas/Stool- successful bowel movement, no concerns, passing gas - Diet - regular, notes small appetite, no nausea or emesis - Lochia - diminishing, light amount, pink discharge - Infant Feeding Type - breast feeding twins, bottle supplementation, tandem feeding - Pain Level - 4/10 controlled with ibuprofen and Percocet, ongoing cramping with feeds Review of Systems - Denies fever, chills, sweats - Denies shortness of breath, difficulty breathing, chest pain, palpitations, chest pressure. - Denies breast pain. - Denies dysuria. - Denies headache or changes in vision. Physical Exam Physical Exam: General: Alert, oriented. No acute distress. Cardiac: RRR, normal S1/S2, no murmurs/rubs/gallops. Respiratory: Non-labored, CTAB, no wheezes/rales/rhonchi. Symmetric chest rise. Abdomen: Soft, nontender, nondistended. Bowel sounds present. Incision clean, mild erythema, non-purulent. Uterus: Uterine fundus firm, palpable 3 cm below umbilicus. Nontender uterus. Lower Extremities: No lower extremity edema or swelling. No deep calf pain. Pao's negative bilaterally. Results & Data ([facility]) Vital Signs (Past 12 Hours) Vital Signs Temp Pulse Resp BP O2 Del Method 05/15/22 23:55 37.0 C 91 H 18 112/75 05/15/22 19:45 36.6 C 90 18 109/74 Room Air Resident Activity Tracking Resident Involvement: Resident Care Provided Care Provided: OB Delivery
[2022-05-16] MEDS: oxyCODONE/ACETAMINOPHEN 5mg/325mg TAB PO PRN ×2 (06:18→10:26)
[2022-05-16] MEDS: IBUPROFEN 600 MG TAB PO PRN ×2 (06:18→10:26)
[2022-05-16] MEDS: SERTRALINE HCL 50 MG TABLET PO SCH (08:36)
[2022-05-16] MEDS: SIMETHICONE 80 MG CHEW PO SCH (08:36)
[2022-05-16] MEDS: FERROUS SULFATE 325 MG TAB PO SCH (08:36)
[2022-05-16] MEDS: PRENATAL VITAMIN 1 TAB PO SCH (08:36)
[2022-05-16] MEDS: DOCUSATE SODIUM 100 MG CAP PO SCH (10:07)
== END 2022-05-16 12:04 | disposition home or self-care (01) | DRG 785 ==
LOC: 4S1 05:25 → EDSTATUS 10:30 → 4E2 13:04
PROC: M.PPTLD (2022-05-13 07:30)